=== PATIENT | male | born 1995 | race Caucasian/White ===

== ENCOUNTER 2022-01-14 20:03 | Emergency (ER) | payer BC, MEDICAID ==
[~2022-01-14] VITALS: Ht 162.6 cm; Wt 77.3 kg
[2022-01-14 20:24] VITALS: BP 144/73
[2022-01-14] MEDS ORDERED: amox tr/potassium clavulanate 875/125mg TAB PO ONE (20:35)
[2022-01-14] MEDS ORDERED: AMOX-117 PO (20:36)
[2022-01-14] MEDS ORDERED: TETanus/Pertussis (Acell)/Diphther VAC/PF (Tdap-Adult) 0.5ml syringe IMVAC ONE (20:40)
== END 2022-01-14 20:54 | disposition home or self-care (01) ==
LOC: ER 20:04
DX: S61.432A Puncture wound without foreign body of left hand, initial encounter (principal); S61.431A Puncture wound without foreign body of right hand, initial encounter; L03.113 Cellulitis of right upper limb; Z79.2 Long term (current) use of antibiotics; W55.01XA Bitten by cat, initial encounter; Y93.89 Activity, other specified; Y92.89 Other specified places as the place of occurrence of the external cause; Y99.8 Other external cause status
CPT/HCPCS: 90471; 90715; 99283

== ENCOUNTER 2022-01-15 17:45 | Emergency (ER) | payer BC, MEDICAID ==
[~2022-01-15] VITALS: Ht 162.6 cm; Wt 77.2 kg
[~2022-01-15 17:45] MED LIST: AMOX-117 PO
[2022-01-15 18:30] VITALS: BP 126/80
[2022-01-15] MEDS ORDERED: sulfamethoxazole/trimethoprim DS (800/160mg) tablet PO ONE (20:25)
[2022-01-15] MEDS ORDERED: azithromycin 250mg tablet PO ONE (20:30)
== END 2022-01-15 21:03 | disposition home or self-care (01) ==
LOC: ER 17:46
DX: R22.33 Localized swelling, mass and lump, upper limb, bilateral (principal); Z79.2 Long term (current) use of antibiotics; W55.01XD Bitten by cat, subsequent encounter
CPT/HCPCS: 73120; 99283